=== PATIENT | male | born 1955 | race Caucasian/White ===

== ENCOUNTER 2017-04-21 10:59 | Emergency (ER) | payer OTHER ==
[~2017-04-21] VITALS: Ht 177.8 cm; Wt 116.2 kg
[~2017-04-21 10:59] MED LIST: CHOL100010 PO; LISI-461 PO; ONDA4TAB7 SL
[2017-04-21 11:01] VITALS: Ht 177.8 cm; Wt 116.2 kg
[2017-04-21] MEDS ORDERED: LACTATED RINGER'S 1000ML 1,000 ML IV ONE (11:15)
[2017-04-21] MEDS ORDERED: OPTIRAY 320 IV PRN (11:30)
[2017-04-21 11:34] LABS: BASO % 0.5 %; BASO ABS # 0.05 K/uL (0-0.2); COMPLETE YES; EOS % 2.3 %; HEMATOCRIT 42.5 % (42-52); IG% 0.2 %; LYMPH % 19.5 %; LYMPH ABS # 1.85 K/uL (1.2-3.4); MEAN CORPUSCULAR HEMOGLOBIN 31.1 pg (25-34); MEAN CORPUSCULAR HGB CONC 34.6 g/dl (32-36); MEAN PLATELET VOLUME 9.8 fL (7.4-10.4); MONO % 6.5 %; PLATELET COUNT 306 K/uL (130-400); RED BLOOD COUNT 4.72 M/uL (4.7-6.1)
[2017-04-21 11:51] LABS: ALT/SGPT 25 U/L (12-78); BLOOD UREA NITROGEN 20 mg/dl (7-18); BUN/CREATININE RATIO 14.2 (10-20); CALCIUM 9.2 mg/dl (8.5-10.1); CARBON DIOXIDE 27 mmol/L (21-32); CHLORIDE 102 mmol/L (98-107); CREATININE 1.42 mg/dl (0.60-1.40); GLUCOSE 141 mg/dl (70-99); POTASSIUM 3.9 mmol/L (3.5-5.1); SODIUM 137 mmol/L (136-145)
[2017-04-21 11:54] LABS: ALKALINE PHOSPHATASE 109 U/L (45-117); AST/SGOT 17 U/L (15-37)
[2017-04-21] MEDS ORDERED: LISI-461 PO (12:11)
[2017-04-21] MEDS ORDERED: ATOR-22 PO (12:11)
[2017-04-21] MEDS ORDERED: CHOL1000 PO (12:11)
[2017-04-21] MEDS ORDERED: PRLSR20 PO (12:11)
[2017-04-21] MEDS ORDERED: ZNTT/150 PO (12:11)
[2017-04-21] MEDS ORDERED: LSN/10125 PO (12:12)
[2017-04-21] MEDS ORDERED: METFTAB2 PO (12:12)
[2017-04-21 12:49] LABS: URINE APPEARANCE CLEAR (CLEAR); URINE BILIRUBIN NEG (NEG); URINE COLOR YELLOW; URINE NITRITE NEG (NEG); URINE PH 7.5 (4.5-7.5); URINE SPECIFIC GRAVITY 1.013 (1.000-1.030); UROBILINOGEN NEG (NEG)
[2017-04-21 12:51] LABS: MANUAL MICROSCOPIC REQUIRED? NO; REVIEW REQ? NO
--- NOTE | 2017-04-21 14:04 | DIAGNOSTIC IMAGING REPORT ---
ABD/PELVIS IV AND ORAL CONT CT DOSE: 1046.34 mGycm HISTORY: Flank pain ABDOMINAL PAIN/GI TECHNIQUE: Multiaxial CT images of the abdomen and pelvis were performed following the use of intravenous and oral contrast. A dose lowering technique was utilized adhering to the principles of ALARA. COMPARISON STUDY: 11/19/2012 FINDINGS: Lung bases are clear. Small hiatal hernia. Liver spleen and pancreas are unremarkable. Kidneys negative for hydronephrosis. There is a stable 2 cm cyst anterior aspect right mid kidney. The bowel pattern is considered nonobstructive. The appendix is normal. Very small nonbowel containing right inguinal hernia IMPRESSION: 1. No acute abnormality of the abdomen or pelvis. 2. Normal appendix. 3. Small fat-containing right inguinal hernia. This is a nonobstructive finding. The above report was generated using voice recognition software. It may contain grammatical, syntax or spelling errors. Electronically signed by: Deo Amado M.D. 04/21/2017 2:02 PM Dictated Date/Time: 04/21/2017 1:57 PM
[2017-04-21 14:58] VITALS: BP 133/79; PULSE 70; TEMP 36.8; O2SAT 97
--- NOTE | 2017-04-21 19:36 | EMERGENCY ROOM VISIT NOTE ---
ED Visit Note First contact with patient: 11:04 Chief Complaint: I'm having left-sided abdominal pain. History of Present Illness: Mr. Zepeda is a 61 year-old white male who ambulates into the ED complaining of left sided abdominal pain. Historically patient reports kidney stones and polyps removed on a recent colonoscopy; he denies diverticula. His own surgical history was repair of a left inguinal hernia many years ago without complications. Patient reports a acute onset of left-sided abdominal pain that woke him from sleep approximately 7 AM this morning, a proximally 4 hours ago. Since that time he reports the pain has been constant but has waxed and waned in intensity. He reports a baseline he has in achy sensation that he rates 4/10 and intermittently the pain becomes sharp and he rates this discomfort 7/10. The pain is nonradiating. He places the exact discomfort towards the lateral aspect of the mid quadrant area inferior to the ribs and does extend into the right lower quadrant. He has not identified any aggravating or alleviating factors related to the pain. At its onset he does report he took ibuprofen without relief of his discomfort. He reports he has been feeling well over the last few days and has had no symptoms. Since the onset of these pain he denies any associated symptoms including recent weight loss/pain, fevers, chills, sweats, skin eruptions, skin color changes, upper respiratory tract symptoms, shortness of breath, chest pain, nausea, vomiting, diarrhea, constipation, rectal bleeding, black/tarry stools, urinary symptoms, hematuria, back/flank pain. Review of Systems: As noted above in history of present illness. All body systems were reviewed and found to be negative as noted above. Past Medical History: As previously noted, dyslipidemia, GERD, hypertension and diabetes. Current Medications: Lipitor, Prilosec, Zantac, vitamin D3, lisinopril/ hydrochlorothiazide, Glucophage. Allergies to Medications: Patient denies. Social History: Patient is currently employed; he feels safe in his home environment; he denies tobacco use. Physical Examination: Vital Signs: Date Time Temp Pulse Resp B/P (MAP) Pulse Ox O2 Delivery O2 Flow Rate FiO2 04/21/17 14:58 36.8 70 18 133/79 97 04/21/17 14:42 70 18 133/79 97 04/21/17 14:34 74 19 96 04/21/17 14:31 131/87 04/21/17 14:04 75 22 95 04/21/17 14:02 139/82 04/21/17 13:34 78 15 97 04/21/17 13:04 80 17 99 04/21/17 13:00 142/87 04/21/17 12:38 143/83 04/21/17 12:34 68 21 95 04/21/17 12:29 72 18 97 04/21/17 12:13 78 04/21/17 12:00 127/85 04/21/17 11:01 36.8 89 16 153/95 95 Room Air GENERAL: 61-year-old male in mild distress due to pain, nontoxic-appearing, afebrile and hemodynamically stable. NEUROLOGICAL: Awake, alert and oriented to person, place and time. Answering questions appropriately and following commands. Normal gait. Good hand eye coordination. SKIN: Warm, dry and pink. No soft tissue eruptions or trauma noted. HEENT: Atraumatic and normocephalic. PERRLA. Sclera white and conjunctiva pink. Oral cavity moist and pink. Pharynx is nonerythematous or edematous. Speech normal. No lymphadenopathy. Trachea midline. No jugular venous distention. BACK: No tenderness over the bony spine. No CVA tenderness. THORAX: Lungs sounds are clear to auscultation and equal bilaterally with symmetrical chest wall. No wheezing, rales or rhonchi. No crepitus, tenderness , subcutaneous air or deformities noted. HEART: Regular rate and rhythm. No gallops, rubs or murmurs are appreciated. ABDOMEN: Flat and soft with mild diffuse tenderness throughout the abdomen. Decreased bowel sounds in all quadrants. No guarding, rigidity or organomegaly. EXTREMITIES: Moves all extremities well on command and with purpose. All distal neurovascular statuses are intact and equal bilaterally. ED Course: Patient is assessed as noted above. Laboratory Testing: Test 04/21/17 11:22 04/21/17 12:27 Range/Units White Blood Count 9.50 4.8-10.8 K/uL Red Blood Count 4.72 4.7-6.1 M/uL Hemoglobin 14.7 14.0-18.0 g/dL Hematocrit 42.5 42-52 % Mean Corpuscular Volume 90.0 80-100 fL Mean Corpuscular Hemoglobin 31.1 25-34 pg Mean Corpuscular Hemoglobin Concent 34.6 32-36 g/dl Platelet Count 306 130-400 K/uL Mean Platelet Volume 9.8 7.4-10.4 fL Neutrophils (%) (Auto) 71.0 % Lymphocytes (%) (Auto) 19.5 % Monocytes (%) (Auto) 6.5 % Eosinophils (%) (Auto) 2.3 % Basophils (%) (Auto) 0.5 % Neutrophils # (Auto) 6.74 1.4-6.5 K/uL Lymphocytes # (Auto) 1.85 1.2-3.4 K/uL Monocytes # (Auto) 0.62 0.11-0.59 K/uL Eosinophils # (Auto) 0.22 0-0.5 K/uL Basophils # (Auto) 0.05 0-0.2 K/uL RDW Standard Deviation 44.5 36.4-46.3 fL RDW Coefficient of Variation 13.4 11.5-14.5 % Immature Granulocyte % (Auto) 0.2 % Immature Granulocyte # (Auto) 0.02 0.00-0.02 K/uL Sodium Level 137 136-145 mmol/L Potassium Level 3.9 3.5-5.1 mmol/L Chloride Level 102 98-107 mmol/L Carbon Dioxide Level 27 21-32 mmol/L Anion Gap 9.0 3-11 mmol/L Blood Urea Nitrogen 20 7-18 mg/dl Creatinine 1.42 0.60-1.40 mg/dl Est Creatinine Clear Calc Drug Dose 71.5 ml/min Estimated GFR () 62.2 Estimated GFR (Non- 53.7 BUN/Creatinine Ratio 14.2 10-20 Random Glucose 141 70-99 mg/dl Calcium Level 9.2 8.5-10.1 mg/dl Total Bilirubin 0.4 0.2-1 mg/dl Direct Bilirubin < 0.1 0-0.2 mg/dl Aspartate Amino Transf (AST/SGOT) 17 15-37 U/L Alanine Aminotransferase (ALT/SGPT) 25 12-78 U/L Alkaline Phosphatase 109 45-117 U/L Total Protein 7.6 6.4-8.2 gm/dl Albumin 3.6 3.4-5.0 gm/dl Lipase 230 73-393 U/L Urine Color YELLOW Urine Appearance CLEAR CLEAR Urine pH 7.5 4.5-7.5 Urine Specific [place] 1.013 1.000-1.030 Urine Protein NEG NEG Urine Glucose (UA) NEG NEG Urine Ketones NEG NEG Urine Occult Blood NEG NEG Urine Nitrite NEG NEG Urine Bilirubin NEG NEG Urine Urobilinogen NEG NEG Urine Leukocyte Esterase NEG NEG Contrast Abdominal/Pelvic CT: Was reviewed by myself and read by the radiologist showing no acute intra-abdominal or intrapelvic abnormalities. Normal-appearing appendix. Small fat-containing right inguinal hernia. Patient was hydrated with lactated Ringer's; he refused pain medications multiple times during his stay in the emergency department. Patient was reassessed multiple times during his stay in the emergency department. Patient's case was reviewed with ; we agreed on diagnostic approach , treatment, disposition and plan per Patient was educated about today's findings and instructed on his treatment plan ; he verbalizes understanding and agreement with this plan. Clinical Impression: Left-sided abdominal pain. Decision-Making: Initially my differential diagnosis I considered diverticulitis , kidney stone, pyelonephritis, constipation, bowel obstruction and other causes. Disposition: Patient discharged home in stable condition; prior to departure he was reassessed and subjectively reported he was feeling better and rated his discomfort 3/10. Plan: Patient was encouraged to alternate ibuprofen and acetaminophen every 3 hours as needed for pain. Patient was encouraged to stay well-hydrated with increased clear fluids. Patient was encouraged to contact his PCP and request follow-up care and treatment early next week. Patient was encouraged return ED for worsening pain, fevers, bloody stools, bloody urine or any new/concerning symptoms.
== END 2017-04-21 14:55 | disposition home or self-care (01) ==
LOC: C.EDB 11:02 → C.EDC 14:55
DX: K40.90 Unilateral inguinal hernia, without obstruction or gangrene, not specified as recurrent (principal); Z87.442 Personal history of urinary calculi; Z86.010 Personal history of colon polyps; Z98.890 Other specified postprocedural states; E78.5 Hyperlipidemia, unspecified; K21.9 Gastro-esophageal reflux disease without esophagitis; I10 Essential (primary) hypertension; E11.9 Type 2 diabetes mellitus without complications; Z79.899 Other long term (current) drug therapy